=== PATIENT | female | born 1980 | race Asian ===

== ENCOUNTER → 2024-05-12 | Outpatient (CLI) | payer SELFPAY ==
--- NOTE | 2024-05-12 09:44 | BI_ITS ---
EXAM: Diagnostic mammograms. CLINICAL HISTORY: Left mastodynia. COMPARISON: Mammograms of January 14, 2024 and January 08, 2023. TECHNIQUE: 2D and 3D mammographic examination of both breasts. CAD was utilized. FINDINGS: Breast density: Category D (extremely dense: The breasts are mostly dense tissue, which can make it harder to see masses or other findings on the mammogram. No dominant mass lesion is seen in either breast. No suspicious microcalcifications or areas of architectural distortion change and noted. The overall breast pattern is unchanged bilaterally. BI/DIAG MAMM W/CAD, UNILAT IMPRESSION: No specific mammographic evidence of malignancy. Overall final assessment: ACR BI-RADS category code 2, benign. Reading Location: [place] [id number]
--- NOTE | 2024-05-12 09:44 | US_ITS ---
PROCEDURE: BREAST LIMITED UNILATERAL 05/12/2024 REASON FOR EXAM: MASS TECHNIQUE: Targeted left breast ultrasound. COMPARISON: Unilateral (left) mammogram of the same date. FINDINGS: Left breast ultrasound was targeted to the the area of concern at 12 o'clock. 10 mm x 11 mm x 5 mm anechoic cyst is seen at 12 o'clock, about 7 cm from the nipple at mid depth. The breast tissue appears otherwise sonographically normal. US/Breast Limited Unilateral IMPRESSION: Impression: Simple left breast cyst. Birads: 2, benign. Recommend yearly screening mammography unless symptoms or s igns indicated otherwise. Reading Location: [facility]
== END | disposition home or self-care (01) ==
LOC: OPBI 09:41
PROVIDERS: PCP Family Medicine; Referring Provider Family Medicine; Visit Provider Family Medicine
DX: N63.20 Unspecified lump in the left breast, unspecified quadrant (principal)
CPT/HCPCS: 76642; 77061; 77065; G0279